=== PATIENT | male | born 1965 | race Caucasian/White ===

== ENCOUNTER 2024-08-09 06:24 | Day surgery (SDC) | payer BC ==
[~2024-08-09 06:24] MED LIST: EPINEPHrine 0.3 MG in Ophthalmic Irrigation Solution 500 ML IRR SCH
[2024-08-09] MEDS ORDERED: Cyclopentolate 1% Opth Drop 2 ML BOT ONE (07:23)
[2024-08-09] MEDS ORDERED: PHENYLephrine 2.5% Ophth Soln 15 ml Bottle ONE (07:23)
[2024-08-09] MEDS ORDERED: PROPOFOL 20 ML ONE (08:08)
[2024-08-09] MEDS ORDERED: fentaNYL 50 mcg/mL 1 mL Vial ONE (08:09)
[2024-08-09] MEDS ORDERED: Midazolam HCl 2 mg/2 ml Vial ONE (08:09)
[2024-08-09] MEDS ORDERED: CEFAZOLIN 1 GM VIAL ONE (08:30)
[2024-08-09] MEDS ORDERED: Lidocaine 4% PF 5 ML AMP ONE (08:30)
[2024-08-09] MEDS ORDERED: Triamcinolone 40 MG/ML VIAL ONE (08:30)
[2024-08-09] MEDS ORDERED: Maxitrol 0.1% Opth Oint 3.5 GM TUBE ONE (08:30)
[2024-08-09] MEDS ORDERED: Lidocaine 1% PF 5 ML VIAL ONE (08:30)
[2024-08-09] MEDS ORDERED: Bupivacaine 0.75% 10 ML VIAL ONE (08:30)
[2024-08-09] MEDS ORDERED: Sterile Water 10 ML ONE (09:18)
== END 2024-08-09 09:55 | disposition home or self-care (01) ==
LOC: SDC 06:24
PROVIDERS: ATTEND Ophthalmology Retina Specialist
PROC: 08T43ZZ Resection of Right Vitreous, Percutaneous Approach (ICD-10-PCS; principal; 2024-08-09)
DX: H33.41 Traction detachment of retina, right eye (principal)
CPT/HCPCS: C1814; J0171; J0690; J2250; J2704; J3010; J3301; J3490